=== PATIENT | female | born 1940 | race Asian ===

== ENCOUNTER 2017-01-10 15:39 | Emergency (ER) | payer MEDICARE, OTHER ==
[~2017-01-10] VITALS: Ht 157.5 cm; Wt 50.0 kg
[2017-01-10 16:13] VITALS: Ht 157.5 cm; Wt 50.0 kg
--- NOTE | 2017-01-10 16:29 | RADRPT ---
PROCEDURE: XR Chest. CLINICAL INDICATION: Shortness of breath. TECHNIQUE: Single frontal view. COMPARISON: Chest pain. FINDINGS: There is bilateral interstitial pulmonary disease consistent with pulmonary edema. There is mild bi basilar atelectasis. The lungs are otherwise clear. A tracheostomy tube is in satisfactory positio n. The heart is mildly enlarged. There is calcification in the aorta consistent with atherosclerosis. There are small bilateral pleural effusions. There is no pneumothorax. IMPRESSION: 1. Pulmonary edema. 2. Mild bibasilar atelectasis. 3. Tracheostomy tube. 4. Mild cardiomegaly and atherosclerosis. 5. Small bilateral pleural effusions. RPTAT: QQ .Dwayne Reid MD, MD Date Time Electronically viewed and signed by .Dwayne Reid MD, on 01/10/2017 16:29 .R/
[2017-01-10] MEDS ORDERED: CLOP75TA4 GTB (16:39)
[2017-01-10] MEDS ORDERED: FURO20TA3 GTB (16:40)
[2017-01-10] MEDS ORDERED: LACTINEX GTB (16:41)
[2017-01-10] MEDS ORDERED: POTA10TA97 GTB (16:42)
[2017-01-10] MEDS ORDERED: PSYL3.4P5 GTB (16:45)
[2017-01-10] MEDS ORDERED: THIA100T10 GTB (16:46)
[2017-01-10] MEDS ORDERED: CHOL100062 GTB (16:46)
[2017-01-10] MEDS ORDERED: FER325 GTB (16:47)
[2017-01-10] MEDS ORDERED: MAGN400O4 GTB (16:47)
[2017-01-10] MEDS ORDERED: LACT20SO2 GTB (16:53)
[2017-01-10] MEDS ORDERED: ONDA4TAB95 GTB (16:54)
[2017-01-10] MEDS ORDERED: HYDR-3670 GTB (16:55)
[2017-01-10 16:56] LABS: BASOPHILS % 0.1 % (0.0-2.0); HEMATOCRIT 28.1 % (37.0-47.0); HEMOGLOBIN 9.1 g/dl (12.0-16.0); LYMPHOCYTES # 1.6 10^3/ul (0.8-2.9); MEAN CORPUSCULAR HEMOGLOBIN 28.2 pg (29.0-33.0); MEAN CORPUSCULAR HGB CONC 32.2 g/dl (32.0-37.0); MEAN CORPUSCULAR VOLUME 87.7 fl (82.0-101.0); MEAN PLATELET VOLUME 9.4 fl (7.4-10.4); MONOCYTE # 0.6 10^3/ul (0.3-0.9); NEUTROPHIL # 6.1 10^3/ul (1.6-7.5); NEUTROPHILS % 73.9 % (39.0-77.0); PLATELET COUNT 197 10^3/UL (140-440); RED BLOOD COUNT 3.21 10^6/ul (4.20-5.40); RED CELL DISTRIBUTION WIDTH 16.2 % (11.5-14.5); UNCORRECTED WBC 8.3 10^3/ul (4.8-10.8); WHITE BLOOD COUNT 8.3 10^3/ul (4.8-10.8)
[2017-01-10 16:57] LABS: CONDITION 1; LH ANALYZER COMMENTS 1
[2017-01-10] MEDS ORDERED: METO-448 GTB (16:58)
[2017-01-10] MEDS ORDERED: PANT40TA4 GTB (16:59)
[2017-01-10] MEDS ORDERED: ZOLP10TA5 GTB (17:01)
[2017-01-10] MEDS ORDERED: CLON0.5T4 GTB (17:05)
[2017-01-10 17:06] LABS: ALBUMIN 3.7 g/dl (3.3-4.9); INR 1.08; PT RATIO 1.1
[2017-01-10] MEDS ORDERED: LORA0.5T GTB (17:06)
[2017-01-10 17:07] LABS: PARTIAL THROMBOPLASTIN TIME 33.9 Sec (25.0-35.0)
[2017-01-10 17:09] LABS: ALBUMIN/GLOBULIN RATIO 0.75; BILIRUBIN,INDIRECT 0.3 mg/dl (0-1.1); BILIRUBIN,TOTAL 0.3 mg/dl (0.2-1.3); CREATININE 0.57 mg/dl (0.44-1.00); TOTAL PROTEIN 8.6 g/dl (6.1-8.1)
[2017-01-10] MEDS ORDERED: INSU100V3 IJ (17:11)
[2017-01-10 17:20] LABS: TROPONIN-I 0.031 ng/ml (0.00-0.12)
--- NOTE | 2017-01-10 17:39 | ERD ---
ER Documentation Chief Complaint Date/Time DATE: 01/10/17 TIME: 17:34 Chief Complaint HPI 76-year-old female history of chronic respiratory failure, ventilator dependence , G-tube who presents with anemia. Routine blood draw showed hemoglobin around 7. The patient describes generalized malaise but denies any fevers, chills, no hematemesis, no melena. Patient otherwise has no complaints. ROS All systems reviewed and are negative except as per history of present illness. Medications Home Meds Reported Medications Insulin Regular, Human (Humulin R) 100 Unit/1 Ml Vial, 0 IJ SLIDING SCALE, VIAL 60-149=0, 150-200=2 UNITS, 201-250=4 UNITS, 251-300=6 UNITS, 301-350=8 UNITS, 351-400=10 UNITS, 401-450=12 UNITS MORE THAN 451=CALL MD. 01/10/17 Lorazepam* (Lorazepam*) 0.5 Mg Tablet, 0.5 MG GTB Q4H Y for ANXIETY, TAB 01/10/17 Clonazepam* (Clonazepam*) 0.5 Mg Tablet, 0.25 MG GTB BID, TAB 01/10/17 Zolpidem Tartrate* (Zolpidem Tartrate*) 10 Mg Tablet, 10 MG GTB QHS Y for INSOMNIA, #30 TAB 01/10/17 Pantoprazole* (Pantoprazole*) 40 Mg Tablet.dr, 40 MG GTB AC BREAKFAST, TAB 01/10/17 Metoprolol Tartrate* (Lopressor*) 25 Mg Tab, 25 MG GTB BID, #60 TAB HOLD IF SBP [id number] OR HR BELOW 60 01/10/17 Hydralazine Hcl* (Hydralazine Hcl*) 10 Mg Tablet, 10 MG GTB Q6H, #60 TAB 01/10/17 Ondansetron Hcl* (Ondansetron Hcl*) 4 Mg Tablet, 4 MG GTB Q4H Y for NAUSEA AND OR VOMITING, TAB 01/10/17 Lactulose* (Lactulose*) 20 Gm/30 Ml Solution, 20 GM GTB BID, ML 01/10/17 Magnesium Hydroxide* (Milk Of Magnesia*) 400 Mg/5 Ml Oral.susp, 30 ML GTB DAILY Y for PRN, ML 01/10/17 Ferrous Sulfate* (Ferrous Sulfate*) 325 Mg Tabec, 325 MG GTB BID, TAB 01/10/17 Cholecalciferol* (Vitamin D3*) 1,000 Unit Tablet, 1000 UNIT GTB DAILY, TAB 01/10/17 Thiamine* (Thiamine*) 100 Mg Tablet, 100 MG GTB DAILY, TAB 01/10/17 Psyllium Husk-Aspartame (Metamucil Fiber Singles Packet) 3.4 Gm Powd.pack, 3.4 GM GTB DAILY, PACKET 01/10/17 Potassium Chloride (Klor-Con) 10 Meq Tablet.sa, 10 MEQ GTB DAILY, TAB.SA 01/10/17 Lactobacillus Acidophilus* (Lactinex*) 1 Tab Chew, 1 TAB GTB DAILY, TAB 01/10/17 Furosemide* (Furosemide*) 20 Mg Tablet, 20 MG GTB DAILY, #60 TAB 01/10/17 Clopidogrel Bisulfate* (Clopidogrel Bisulfate*) 75 Mg Tablet, 75 MG GTB DAILY, # 30 TAB 01/10/17 Allergies Allergies: Coded Allergies: Penicillins (Unverified Allergy, Unknown, 01/10/17) atenolol (Unverified Allergy, Unknown, 01/10/17) diltiazem (Unverified Allergy, Unknown, 01/10/17) PMhx/Soc Medical and Surgical Hx: pt denies Surgical Hx History of Surgery: No (appendectomy) Anesthesia Reaction: No Hx Neurological Disorder: No Hx Respiratory Disorders: Yes (RESP FAILURE ) Hx Cardiac Disorders: Yes (CHF, COPD, stent placement ) Hx Alcohol Use: No Hx Substance Use: No Hx Tobacco Use: No Smoking Status: Never smoker FmHx Family History: No diabetes Physical Exam Vitals Vital Signs Date Time Temp Pulse Resp B/P Pulse Ox O2 Delivery O2 Flow Rate FiO2 01/10/17 16:20 77 18 100 28 01/10/17 16:15 15 01/10/17 16:13 98.6 80 16 150/83 100 Physical Exam General: Well developed, well nourished, no acute distress Head: Normocephalic, atraumatic. Eyes: Pupils equally reactive, EOM intact ENT: Moist mucous membranes Neck: Supple, no lymphadenopathy Respiratory: Lungs clear bilaterally, no distress Cardiovascular: RRR, no murmurs, rubs, or gallops Abdominal: Soft, non-tender, non-distended, no peritoneal signs : Deferred MSK: No edema, no unilateral swelling, 5/5 strength Neurologic: Alert and oriented, moving all extremities, normal speech, no focal weakness, no cerebellar signs Skin: Stage I sacral decubitus with clean dressing Psych: Normal mood Result Diagram: 01/10/17 1640 01/10/17 1640 Results 24 hrs Laboratory Tests Test 01/10/17 16:40 Activated Partial Thromboplast Time 33.9Sec Alanine Aminotransferase (ALT/SGPT) 21IU/L Albumin 3.7g/dl Albumin/Globulin Ratio 0.75 Alkaline Phosphatase 139IU/L Anion Gap 16 Aspartate Amino Transf (AST/SGOT) 31IU/L Basophils # 0.010^3/ul Basophils % 0.1% Blood Morphology Comment Blood Urea Nitrogen 28mg/dl Calcium Level 9.0mg/dl Carbon Dioxide Level 27mmol/L Chloride Level 102mmol/L Creatinine 0.57mg/dl Direct Bilirubin 0.00mg/dl Eosinophils # 0.010^3/ul Eosinophils % 0.0% Globulin 4.90g/dl Glucose Level 105mg/dl Hematocrit 28.1% Hemoglobin 9.1g/dl INR International Normalized Ratio 1.08 Indirect Bilirubin 0.3mg/dl Lymphocytes # 1.610^3/ul Lymphocytes % 19.0% Mean Corpuscular Hemoglobin 28.2pg Mean Corpuscular Hemoglobin Concent 32.2g/dl Mean Corpuscular Volume 87.7fl Mean Platelet Volume 9.4fl Monocytes # 0.610^3/ul Monocytes % 7.0% Neutrophils # 6.110^3/ul Neutrophils % 73.9% Nucleated Red Blood Cells # 0.010^3/ul Nucleated Red Blood Cells % 0.0/100WBC Platelet Count 72553^3/UL Potassium Level 4.0mmol/L Prothrombin Time 14.0Sec Prothrombin Time Ratio 1.1 Red Blood Count 3.2110^6/ul Red Cell Distribution Width 16.2% Sodium Level 141mmol/L Total Bilirubin 0.3mg/dl Total Protein 8.6g/dl Troponin I 0.031ng/ml White Blood Count 8.310^3/ul Procedures/MDM EKG, MONITORS, & DIAGNOSTIC IMAGING: EKG: I reviewed and interpreted a 12-lead EKG. Rhythm: Normal sinus rhythm Ectopy: None Intervals: No abnormalities ST segments: No elevations or depressions T waves: No contiguous inversions Chest x-ray: I reviewed and interpreted a 1 view of the chest Mediastinum: No enlargement Cardiac silhouette: No cardiomegaly Airspace: Clear lung manrique bilaterally without evidence of pneumothorax Bones: No evidence of fracture LAB INTERPRETATION: Hemoglobin of 9.1 MEDICAL DECISION MAKING: The patient presents for evaluation of anemia. She is otherwise hemodynamically stable. No evidence of GI bleed or active blood loss. This appears to be a chronic issue for the patient. She has had a transfusion in the past. ER COURSE: The patient's hemoglobin is 9.1. She has no evidence of active blood loss. She continues to be well-appearing in the emergency department. No indication for transfusion currently. I spoke to the covering provider Dr. Jason Alejo. We discussed the case and I feel the patient can be safely discharged back to [facility]. He agrees. I kept the patient and/or family informed of laboratory and diagnostic imaging results throughout the emergency room course. DISPOSITION PLAN: We discussed follow up with the patient's primary care doctor within 24 to 48 hours as needed. We also discussed return to the emergency room for worsening symptoms or worsening condition. Departure Diagnosis: Primary Impression: Anemia Anemia type: unspecified type Qualified Code: D64.9 - Anemia, unspecified type Condition: Stable ANTIONE HOOD MD Jan 10, 2017 17:39
[2017-01-10 17:43] VITALS: TEMP 98.6
[2017-01-10 22:26] VITALS: BP 142/55; PULSE 78; RESP 18
== END 2017-01-10 22:26 | disposition home or self-care (01) ==
LOC: E/R 15:39
DX: D64.9 Anemia, unspecified (principal); I50.9 Heart failure, unspecified; J44.9 Chronic obstructive pulmonary disease, unspecified; Z79.01 Long term (current) use of anticoagulants; Z79.4 Long term (current) use of insulin; Z98.61 Coronary angioplasty status
CPT/HCPCS: 36415; 71010; 80053; 84484; 85025; 85610; 85730; 86850; 86900; 86901; 93005; 94002

== ENCOUNTER 2017-10-26 23:15 | Emergency (ER) | payer MEDICARE, OTHER ==
[~2017-10-26] VITALS: Ht 152.4 cm; Wt 40.0 kg
[~2017-10-26 23:15] MED LIST: CHOL100062 GTB; CLON0.5T4 GTB; CLOP75TA4 GTB; FER325 GTB; FURO20TA3 GTB; HYDR-3670 GTB; INSU100V3 IJ; LACT20SO2 GTB; LACTINEX GTB; LORA0.5T GTB; MAGN400O4 GTB; METO-448 GTB; ONDA4TAB95 GTB; PANT40TA4 GTB; POTA10TA97 GTB; PSYL3.4P5 GTB; THIA100T10 GTB; ZOLP10TA5 GTB
[2017-10-26 23:34] VITALS: Ht 152.4 cm; Wt 40.0 kg
--- NOTE | 2017-10-26 23:36 | ERD ---
ER Documentation Chief Complaint Chief Complaint Fall HPI The patient is a 77-year-old female, presenting with a right upper eyelid superficial abrasion. It was unclear how she got it, reportedly that she might have fallen. 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 Medications Home Meds Reported Medications Insulin Regular, Human (Humulin R) 100 Unit/1 Ml Vial, 0 IJ SLIDING SCALE, VIAL 60-149=0, 150-200=2 UNITS, 201-250=4 UNITS, 251-300=6 UNITS, 301-350=8 UNITS, 351-400=10 UNITS, 401-450=12 UNITS MORE THAN 451=CALL MD. 01/10/17 Lorazepam* (Lorazepam*) 0.5 Mg Tablet, 0.5 MG GTB Q4H Y for ANXIETY, TAB 01/10/17 Clonazepam* (Clonazepam*) 0.5 Mg Tablet, 0.25 MG GTB BID, TAB 01/10/17 Zolpidem Tartrate* (Zolpidem Tartrate*) 10 Mg Tablet, 10 MG GTB QHS Y for INSOMNIA, #30 TAB 01/10/17 Pantoprazole* (Pantoprazole*) 40 Mg Tablet.dr, 40 MG GTB AC BREAKFAST, TAB 01/10/17 Metoprolol Tartrate* (Lopressor*) 25 Mg Tab, 25 MG GTB BID, #60 TAB HOLD IF SBP [id number] OR HR BELOW 60 01/10/17 Hydralazine Hcl* (Hydralazine Hcl*) 10 Mg Tablet, 10 MG GTB Q6H, #60 TAB 01/10/17 Ondansetron Hcl* (Ondansetron Hcl*) 4 Mg Tablet, 4 MG GTB Q4H Y for NAUSEA AND OR VOMITING, TAB 01/10/17 Lactulose* (Lactulose*) 20 Gm/30 Ml Solution, 20 GM GTB BID, ML 01/10/17 Magnesium Hydroxide* (Milk Of Magnesia*) 400 Mg/5 Ml Oral.susp, 30 ML GTB DAILY Y for PRN, ML 01/10/17 Ferrous Sulfate* (Ferrous Sulfate*) 325 Mg Tabec, 325 MG GTB BID, TAB 01/10/17 Cholecalciferol* (Vitamin D3*) 1,000 Unit Tablet, 1000 UNIT GTB DAILY, TAB 01/10/17 Thiamine* (Thiamine*) 100 Mg Tablet, 100 MG GTB DAILY, TAB 01/10/17 Psyllium Husk-Aspartame (Metamucil Fiber Singles Packet) 3.4 Gm Powd.pack, 3.4 GM GTB DAILY, PACKET 01/10/17 Potassium Chloride (Klor-Con) 10 Meq Tablet.sa, 10 MEQ GTB DAILY, TAB.SA 01/10/17 Lactobacillus Acidophilus* (Lactinex*) 1 Tab Chew, 1 TAB GTB DAILY, TAB 01/10/17 Furosemide* (Furosemide*) 20 Mg Tablet, 20 MG GTB DAILY, #60 TAB 01/10/17 Clopidogrel Bisulfate* (Clopidogrel Bisulfate*) 75 Mg Tablet, 75 MG GTB DAILY, # 30 TAB 01/10/17 Allergies Allergies: Coded Allergies: Penicillins (Unverified Allergy, Unknown, 01/10/17) atenolol (Unverified Allergy, Unknown, 01/10/17) diltiazem (Unverified Allergy, Unknown, 01/10/17) PMhx/Soc History of Surgery: No (appendectomy) Anesthesia Reaction: No Hx Neurological Disorder: No Hx Respiratory Disorders: Yes (RESP FAILURE ) Hx Cardiac Disorders: Yes (CHF, COPD, stent placement ) Hx Alcohol Use: No Hx Substance Use: No Hx Tobacco Use: No Physical Exam Vitals Vital Signs Date Time Temp Pulse Resp B/P Pulse Ox O2 Delivery O2 Flow Rate FiO2 10/27/17 03:30 98.0 65 14 97/58 99 Mechanical Ventilator 10/27/17 02:00 75 14 140/70 99 Mechanical Ventilator 10/27/17 01:20 77 14 99 30 10/27/17 01:00 72 12 123/71 99 10/27/17 00:00 76 14 112/51 99 10/26/17 23:34 98.7 78 14 113/64 98 10/26/17 23:30 97.8 75 15 113/64 98 Mechanical Ventilator 10/26/17 23:20 74 16 98 30 Physical Exam Const: No acute distress. Head: Atraumatic. Eyes: Normal Conjunctiva. ENT: Normal External Ears, Nose and Mouth. Minimal right upper eyelid abrasion, no laceration Neck: Full range of motion. No meningismus. Resp: Clear to auscultation bilaterally. Cardio: Regular rate and rhythm. Abd: Soft, non distended, normal bowel sounds, non tender. Skin: No petechiae or rashes. Back: No midline or flank tenderness. Ext: No cyanosis, or edema. Neur: Awake and alert. No focal deficit Psych: Normal Mood and Affect. Result Diagram: 10/26/17234910/26/172349 Results 24 hrs Laboratory Tests Test 10/26/17 23:50 10/27/17 01:31 White Blood Count 7.510^3/ul Red Blood Count 3.6510^6/ul Hemoglobin 11.1g/dl Hematocrit 34.6% Mean Corpuscular Volume 94.8fl Mean Corpuscular Hemoglobin 30.4pg Mean Corpuscular Hemoglobin Concent 32.1g/dl Red Cell Distribution Width 12.5% Platelet Count 11127^3/UL Mean Platelet Volume 10.8fl Neutrophils % 74.1% Lymphocytes % 16.8% Monocytes % 8.4% Eosinophils % 0.0% Basophils % 0.4% Nucleated Red Blood Cells % 0.0/100WBC Neutrophils # 5.610^3/ul Lymphocytes # 1.310^3/ul Monocytes # 0.610^3/ul Eosinophils # 0.010^3/ul Basophils # 0.010^3/ul Nucleated Red Blood Cells # 0.010^3/ul Prothrombin Time 13.6Sec Prothrombin Time Ratio 1.1 INR International Normalized Ratio 1.03 Activated Partial Thromboplast Time 35.4Sec Sodium Level 137mmol/L Potassium Level 4.1mmol/L Chloride Level 97mmol/L Carbon Dioxide Level 32mmol/L Anion Gap 12 Blood Urea Nitrogen 32mg/dl Creatinine 0.58mg/dl Glucose Level 134mg/dl Calcium Level 9.3mg/dl Bedside Urine pH (LAB) 5.5 Bedside Urine Protein (LAB) Negative Bedside Urine Glucose (UA) Negative Bedside Urine Ketones (LAB) Negative Bedside Urine Blood Negative Bedside Urine Nitrite (LAB) Negative Bedside Urine Leukocyte Esterase (L Negative Current Medications Medications (Trade) Dose Ordered Sig/Jie Route PRN Reason Start Time Stop Time Status Last Admin Dose Admin Sodium Chloride (NS) 500 ml @ 500 mls/hr Q1H ONCE IV 10/27/17 01:30 10/27/17 02:29 DC 10/27/17 01:39 Procedures/MDM [place] [address] Radiology Main Line: [phone] DIAGNOSTIC IMAGING REPORT Patient: LAURY JEFF : 1940 Age: 77 Sex: F MR #: [id number] DOS: 10/26/17 2341 Ordering MD: LEANDRA NATION MD Location: E/R Room/Bed: PROCEDURE: CT facial bones CLINICAL INDICATION: Fall TECHNIQUE: A CT of the facial bones was performed on a GE 64-slice CT scanner utilizing high-resolution axial images. Sagittal, and coronal multiplanar reformatted images were made. The CTDIvol is 29.48 mGy and the DLP is 551.8 mGy-cm. One or more of the following dose reduction techniques were used: automated exposure control, adjustment of the mA and/or kV according to patient size, or use of iterative reconstruction technique. DICOM images are available. COMPARISON: None. FINDINGS: The patient is rotated. There is mild right periorbital soft tissue swelling. The osseous structures are intact with no evidence of fracture. The orbital contents are normal. The mandible and temporomandibular joints are normal. There is mucosal thickening in the ethmoid, and sphenoid sinuses. IMPRESSION: Mild right periorbital soft tissue swelling. No evidence of a facial bone fracture. Mild chronic sinusitis. Physician Siria Date Time Electronically viewed and signed by Physician Sriia on 10/27/2017 02: 39 CS/ CC: LEANDRA NATION MD [place] [address] Radiology Main Line: [phone] DIAGNOSTIC IMAGING REPORT Patient: LAURY JEFF : 1940 Age: 77 Sex: F MR #: [id number] DOS: 10/26/17 2341 Ordering MD: LEANDRA NATION MD Location: E/R Room/Bed: PROCEDURE: CT cervical spine without contrast. CLINICAL INDICATION: Trauma, neck pain. TECHNIQUE: A CT of the cervical spine was performed without intravenous contrast. Coronal and sagittal reformats were generated. DICOM images are available. CTDIvol: 22.11 mGy. DLP: 421.28 mGy-cm. One or more of the following dose reduction techniques were used: - Automated exposure control. - Adjustment of the mA and/or kV according to patient size. - Use of iterative reconstruction technique. COMPARISON: None. FINDINGS: There is a normal cervical lordosis. No spondylolisthesis is seen. The vertebral body heights are maintained. No fracture or subluxation is seen. The prevertebral soft tissues are normal. There is no significant degenerative change. The soft tissue structures of the neck are unremarkable. IMPRESSION: 1. No fracture or subluxation of the cervical spine. RPTAT: HTAR .Leobardo Hardin MD, MD Date Time Electronically viewed and signed by .Leobardo Hardin MD, MD on 10/27/2017 02:38 .R/ CC: LEANDRA NATION MD [place] [address] Radiology Main Line: [phone] DIAGNOSTIC IMAGING REPORT Patient: LAURY JEFF : 1940 Age: 77 Sex: F MR #: [id number] DOS: 10/26/17 2341 Ordering MD: LEANDRA NATION MD Location: E/R Room/Bed: PROCEDURE: CT Brain without contrast. CLINICAL INDICATION: Fall, headaches. TECHNIQUE: A CT of the brain was performed utilizing axial sections from the skull base through the vertex without contrast. Multiplanar re-formations were generated. DICOM images are available. Images were reviewed on a high- resolution PACS workstation. CTDIvol: 44.77 mGy. DLP: 720.23 mGy-cm. One or more of the following dose reduction techniques were used: - Automated exposure control. - Adjustment of the mA and/or kV according to patient size. - Use of iterative reconstruction technique. COMPARISON: None available FINDINGS: There is mild generalized volume loss. No hydrocephalus is seen. There is no mass effect. No acute intracranial hemorrhage is identified. There is no extra- axial collection. No CT evidence of acute infarction is identified. There are moderate atherosclerotic arterial calcifications. There is no significant mucosal disease in the paranasal sinuses. The visualized mastoid air cells are clear. The ossesous structures are unremarkable. The extracranial soft tissues are unremarkable. IMPRESSION: 1. No acute intracranial pathology. 2. Mild generalized volume loss. 3. Atherosclerotic arterial calcifications. RPTAT: HTAR .Leobardo Hardin MD, MD Date Time Electronically viewed and signed by .Leobardo Hardin MD, MD on 10/27/2017 03:10 .R/ CC: LEANDRA NATION MD MEDICAL MAKING DECISION: The patient is a 77-year-old female, presenting with acute facial contusion, acute dehydration. She was treated with normal saline for her mL for acute dehydration with good response The differential diagnoses considered include but are not limited to intracranial pathology, facial fracture, contusion Departure Diagnosis: Primary Impression: Fall with no significant injury Additional Impressions: Facial contusion Dehydration Anemia Thrombocytopenia Condition: Good Comments I discussed the findings with the patient. I advised the patient to follow-up with the primary physician in about 1-2 days, sooner if needed and return if any concern. Disclaimer: Inadvertent spelling and grammatical errors are likely due to EHR/ dictation software use and do not reflect on the overall quality of patient care. Also, please note that the electronic time recorded on this note does not necessarily reflect the actual time of the patient encounter. LEANDRA NATION MD Oct 26, 2017 23:36
[2017-10-26 23:59] LABS: BASOPHILS % 0.4 % (0.0-2.0); HEMATOCRIT 34.6 % (37.0-47.0); HEMOGLOBIN 11.1 g/dl (12.0-16.0); LYMPHOCYTES # 1.3 10^3/ul (0.8-2.9); LYMPHOCYTES % 16.8 % (15.0-51.0); MEAN CORPUSCULAR HEMOGLOBIN 30.4 pg (29.0-33.0); MEAN CORPUSCULAR HGB CONC 32.1 g/dl (32.0-37.0); MEAN CORPUSCULAR VOLUME 94.8 fl (82.0-101.0); MEAN PLATELET VOLUME 10.8 fl (7.4-10.4); MONOCYTE # 0.6 10^3/ul (0.3-0.9); MONOCYTES % 8.4 % (0.0-11.0); NEUTROPHIL # 5.6 10^3/ul (1.6-7.5); NEUTROPHILS % 74.1 % (39.0-77.0); PLATELET COUNT 132 10^3/UL (140-415); RED BLOOD COUNT 3.65 10^6/ul (4.20-5.40); RED CELL DISTRIBUTION WIDTH 12.5 % (11.5-14.5); WHITE BLOOD COUNT 7.5 10^3/ul (4.8-10.8)
[2017-10-27 00:02] LABS: POSITIVE DIFF @See below
[2017-10-27 00:16] LABS: CALCIUM 9.3 mg/dl (8.4-10.2); CREATININE 0.58 mg/dl (0.44-1.00); POTASSIUM 4.1 mmol/L (3.5-5.1)
[2017-10-27 00:35] LABS: INR 1.03; PROTIME 13.6 Sec (11.9-14.9); PT RATIO 1.1
[2017-10-27 00:36] LABS: PARTIAL THROMBOPLASTIN TIME 35.4 Sec (25.0-35.0)
[2017-10-27] MEDS ORDERED: SOD CHLORIDE 0.9% 500 ML IV ONE (01:30)
[2017-10-27 01:32] LABS: URINE BLOOD (Dip) POC Negative (NEGATIVE)
--- NOTE | 2017-10-27 02:38 | RADRPT ---
PROCEDURE: CT cervical spine without contrast. CLINICAL INDICATION: Trauma, neck pain. TECHNIQUE: A CT of the cervical spine was performed without intravenous contrast. Coronal and sag ittal reformats were generated. DICOM images are available. CTDIvol: 22.11 mGy. DLP: 421.28 mGy-cm. One or more of the following dose reduction techniques were used: - Automated exposure control. - Adjustment of the mA and/or kV according to patient size. - Use of iterative reconstruction technique. COMPARISON: None. FINDINGS: There is a normal cervical lordosis. No spondylolisthesis is seen. The vertebral body heights are m aintained. No fracture or subluxation is seen. The prevertebral soft tissues are normal. There is no significant degenerative change. The soft tissue structures of the neck are unremarkable. IMPRESSION: 1. No fracture or subluxation of the cervical spine. RPTAT: HTAR .Leobardo Hardin MD, MD Date Time Electronically viewed and signed by .Leobardo Hardin MD, on 10/27/2017 02:38 .R/
--- NOTE | 2017-10-27 02:40 | RADRPT ---
PROCEDURE: CT facial bones CLINICAL INDICATION: Fall TECHNIQUE: A CT of the facial bones was performed on a GE 64-slice CT scanner utilizing high-resol ution axial images. Sagittal, and coronal multiplanar reformatted images were made. The CTDIvol is 29.48 mGy and the DLP is 551.8 mGy-cm. One or more of the following dose reduction techniques wer e used: automated exposure control, adjustment of the mA and/or kV according to patient size, or use of iterative reconstruction technique. DICOM images are available. COMPARISON: None. FINDINGS: The patient is rotated. There is mild right periorbital soft tissue swelling. The osseous structures are intact with no evidence of fracture. The orbital contents are normal. The mandible and temporo mandibular joints are normal. There is mucosal thickening in the ethmoid, and sphenoid sinuses. IMPRESSION: Mild right periorbital soft tissue swelling. No evidence of a facial bone fracture. Mild chronic sinusitis. Physician Siria Date Time Electronically viewed and signed by Physician Siria on 10/27/2017 02:39 CS/
--- NOTE | 2017-10-27 03:10 | RADRPT ---
PROCEDURE: CT Brain without contrast. CLINICAL INDICATION: Fall, headaches. TECHNIQUE: A CT of the brain was performed utilizing axial sections from the skull base through th e vertex without contrast. Multiplanar re-formations were generated. DICOM images are available. Viji ges were reviewed on a high-resolution PACS workstation. CTDIvol: 44.77 mGy. DLP: 720.23 mGy-cm. One or more of the following dose reduction techniques were used: - Automated exposure control. - Adjustment of the mA and/or kV according to patient size. - Use of iterative reconstruction technique. COMPARISON: None available FINDINGS: There is mild generalized volume loss. No hydrocephalus is seen. There is no mass effect. No acute intracranial hemorrhage is identified. There is no extra-axial collection. No CT evidence of acute infarction is identified. There are moderate atherosclerotic arterial calcifications. There is no significant mucosal disease in the paranasal sinuses. The visualized mastoid air cells a re clear. The ossesous structures are unremarkable. The extracranial soft tissues are unremarkable. IMPRESSION: 1. No acute intracranial pathology. 2. Mild generalized volume loss. 3. Atherosclerotic arterial calcifications. RPTAT: HTAR .Leobardo Hardin MD, Date Time Electronically viewed and signed by .Leobardo Hardin MD, on 10/27/2017 03:10 .R/
[2017-10-27 03:30] VITALS: TEMP 98
[2017-10-27 06:00] VITALS: BP 108/56; PULSE 65; RESP 63
== END 2017-10-27 08:18 | disposition home or self-care (01) ==
LOC: E/R 23:15
DX: S00.83XA Contusion of other part of head, initial encounter (principal); E86.0 Dehydration; D64.9 Anemia, unspecified; D69.6 Thrombocytopenia, unspecified; I50.9 Heart failure, unspecified; J44.9 Chronic obstructive pulmonary disease, unspecified; I25.10 Atherosclerotic heart disease of native coronary artery without angina pectoris; W18.39XA Other fall on same level, initial encounter; Z98.61 Coronary angioplasty status; Z79.4 Long term (current) use of insulin
CPT/HCPCS: 70450; 70486; 72125; 80048; 81003; 85025; 85610; 85730; 94002; 94003; 99285; J7040